=== PATIENT | female | born 1965 | race Caucasian/White ===

== ENCOUNTER 2021-09-13 00:36 | Emergency (ER) | payer OTHER ==
[~2021-09-13] VITALS: Ht 160 cm; Wt 172.4 kg
[2021-09-13 02:24] LABS: Basophils # (auto) 0.1 10 ^3/uL (0-0.2); Basophils % (auto) 0.6 % (0.0-2.0); Eosinophils # (auto) 0.1 10 ^3/uL (0-0.8); Hematocrit 43.7 % (36.0-46.0); Hemoglobin 14.7 g/dL (12.2-16.2); Lymphocytes # (auto) 2.4 10 ^3/uL (0.4-5.4); Lymphocytes % (auto) 22.2 % (10.0-50.0); Mean Corpuscular Hemoglobin 30.4 pg (28.0-32.0); Mean Corpuscular Hgb Conc. 33.6 g/dL (32.0-36.0); Mean Corpuscular Volume 90.5 fL (80.0-100.0); Monocytes # (auto) 0.9 10 ^3/uL (0-1.3); Monocytes % (auto) 8.1 % (0.0-12.0); Neutrophils # (auto) 7.2 10 ^3/uL (1.6-8.6); Neutrophils % (auto) 68.1 % (37.0-80.0); Red Blood Cells 4.83 10^6/uL (4.0-5.20); Red Cell Distribution Width 14.9 % (11.8-14.3); White Blood Cell 10.6 10^3/uL (4.4-10.8)
[2021-09-13 12:53] LABS: Urine Blood Negative /uL (Negative); Urine Specific Gravity 1.013 (1.001-1.035)
[2021-09-13 16:11] LABS: Albumin 3.2 g/dL (3.4-5.0); Calcium 8.7 mg/dL (8.5-10.1); Potassium 4.3 mmol/L (3.5-5.1)
[2021-09-13 16:16] LABS: BUN/Creatinine Ratio 11.2; Bilirubin, Total 0.4 mg/dL (0.2-1.0); Total Protein 7.1 g/dL (6.4-8.2)
[2021-09-13] MEDS ORDERED: SODIUM CHLORIDE 0.9% 1,000 ML IV ONE ×2 (17:30)
[2021-09-13] MEDS ORDERED: metroNIDAZOLE 500MG/100ML 100 ML IV ONE (17:30)
[2021-09-13] MEDS ORDERED: cefTRIAXone 1GM/50ML D5W 50 ML IV ONE (17:30)
[2021-09-13 19:30] LABS: INR 2.93 (0.9-1.15)
[2021-09-13 21:02] VITALS: BP 138/94
== END 2021-09-13 21:51 | disposition short-term general hospital (02) ==
LOC: ER 00:36 → EDBD 00:36 → ER 21:51
DX: R10.13 Epigastric pain (principal); E11.9 Type 2 diabetes mellitus without complications; I10 Essential (primary) hypertension; Z88.1 Allergy status to other antibiotic agents; Z20.822 Contact with and (suspected) exposure to COVID-19
CPT/HCPCS: 36415; 74176; 76705; 80053; 81003; 83605; 83690; 83880; 84484; 85025; 85610; 85730; 87426; 93005; 96361; 96365; 99285; J0696; J7030